=== PATIENT | male | born 1980 ===

== ENCOUNTER 2018-01-11 21:44 | Emergency (ER) | payer SELFPAY ==
[2018-01-11 21:44] VITALS: BMI 35.6
[2018-01-11 22:03] VITALS: BP 129/89; PULSE 112; TEMP 98.6; O2SAT 97
--- NOTE | 2018-01-11 22:57 | C.PDOC ---
History Of Present Illness 37 y/o male w/PMHX of Right knee OA ( await for surgery), comes in for evaluation of right ankle pain gradually developing 4 days ago after twisting injury. Pain localized over the ankle and worse with weight bearing. Otherwise, denies obvious deformity, weakness, sensory or vascular deficit to Right foot. (Marce Vivar) History Per: Patient History/Exam Limitations: no limitations Onset/Duration Of Symptoms: Days (x4) Current Symptoms Are (Timing): Still Present Time Seen by Provider: 01/11/18 22:45 Chief Complaint (Nursing): Lower Extremity Problem/Injury Past Medical History Reviewed: Historical Data, Nursing Documentation, Vital Signs - Medical History PMH: Denies: Chronic Kidney Disease Other Surgeries: Left wrist surgery, Left knee surgery Family History: States: No Known Family Hx - Social History Hx Tobacco Use: Yes Hx Alcohol Use: No Hx Substance Use: No - Immunization History Hx Tetanus Toxoid Vaccination: No Hx Influenza Vaccination: No Hx Pneumococcal Vaccination: No Vital Signs: Last Vital Signs Temp 98.6 F 01/11/18 21:59 Pulse 112 H 01/11/18 21:59 Resp 20 01/12/18 00:49 BP 129/89 01/11/18 21:59 Pulse Ox 97 01/12/18 00:00 - [facility] Procedures APPLICATION OF SPLINT (03/14/15) INJECT/INFUSE NEC (03/14/15) Review Of Systems Musculoskeletal: Positive for: Foot Pain (right ankle) Skin: Negative for: Lesions Neurological: Negative for: Weakness, Numbness Physical Exam - Physical Exam Appears: Well, Non-toxic, No Acute Distress Skin: Normal Color, Warm, No Rash, No Ecchymosis Extremity: Normal ROM (mild discofmort to [place] of Right ankle due to pain), Tenderness (anterior aspect Right ankle with diffuse trace ankle edema. NO palpable deformity. ), No Calf Tenderness, Capillary Refill (less than 2sec to Right foot), No Deformity Neurological/Psych: Oriented x3, Normal Speech, Normal Motor, Normal Sensation, Normal Reflexes ED Course And Treatment O2 Sat by Pulse Oximetry: 97 (RA) Pulse Ox Interpretation: Normal - Other Rad Right ankle X-Ray: Interpreted by Me, Viewed By Me Interpretation: (-) acute fx or dislocation Right tib/fib X-Ray: Interpreted by Me, Viewed By Me Interpretation: (-) acute fx Progress Note: Tramadol PO given to patient. Ordered and reviewed x-rays of left ankle and tib/fib. On re-evaluation, pt is afebrile, hemodynamically stable. Non-toxic. Right LE: tenderness over anterior aspect Right ankle, mild trace edema. No palpable deformity, no neurovascular deficits. XRay review (-) acute fx or dislocation. Oneal wrap applied to Right ankle, air cast applied to Right ankle. Crutches provided w/instruction. Pt advised and ref. to f/u with Ortho in 2-3 days for re-eval. return if any new changes. Disposition Counseled Patient/Family Regarding: Studies Performed, Diagnosis, Need For Followup, Rx Given - Disposition Disposition Time: 23:25 - Disposition Referrals: [facility] [Outside] Disposition: HOME/ ROUTINE Condition: STABLE Additional Instructions: RICE-rest, ice, compression, elevation Take pain medication as prescribed Follow up with Orthopedist in 1-2 days for re-evaluation. return to ED if any worsening or new changes. Prescriptions: traMADol [Ultram] 50 mg PO TID #7 tab Instructions: Ankle Sprain Forms: [employer] (Czech) Print Language: [place] - Clinical Impression Clinical Impression: Ankle sprain - PA / [employer] / Resident Statement MD/DO has reviewed & agrees with the documentation as recorded. - Scribe Statement The provider has reviewed the documentation as recorded by the Scribe (Chika Polanco) - Scribe Statement All medical record entries made by the Scribe were at my direction and personally dictated by me. I have reviewed the chart and agree that the record accurately reflects my personal performance of the history, physical exam, medical decision making, and the department course for this patient. I have also personally directed, reviewed, and agree with the discharge instructions and disposition. (Marce Vivar)
[2018-01-12 00:50] VITALS: RESP 20
--- NOTE | 2018-01-12 08:28 | RAD ---
PROCEDURE: Radiographs of the right tibia and fibula. HISTORY: injury COMPARISON: None available. TECHNIQUE: Frontal and lateral views obtained. FINDINGS: BONES: No fracture or destructive lesion. JOINT SPACES: Unremarkable. OTHER FINDINGS: None. IMPRESSION: Unremarkable radiographs of the right tibia and fibula.
== END 2018-01-12 00:49 | disposition home or self-care (01) ==
LOC: C.ER 21:44
DX: S93.401A Sprain of unspecified ligament of right ankle, initial encounter (principal); X50.1XXA Overexertion from prolonged static or awkward postures, initial encounter; Y92.9 Unspecified place or not applicable